=== PATIENT | female | born 1965 | race Caucasian/White ===

== ENCOUNTER 2016-11-09 14:42 | Emergency (ER) | payer MEDICAID ==
[~2016-11-09] VITALS: Ht 177.8 cm; Wt 68.0 kg
[~2016-11-09 14:42] MED LIST: AVALIDE 150-121 EACH PO
[2016-11-09 15:00] VITALS: BP 119/71
[2016-11-09] MEDS ORDERED: DiphenhydrAMINE 50mg/ml Inj IM ONE (15:15)
[2016-11-09] MEDS ORDERED: Solu-MEDROL 125mg Inj IM ONE (15:15)
[2016-11-09] MEDS ORDERED: DIPHENHYDRAMINE25 M1 ORAL (15:45)
[2016-11-09] MEDS ORDERED: PREDNISONE20 MG ORAL (15:45)
[2016-11-09 15:50] VITALS: BP 119/71
--- NOTE | 2016-11-09 17:08 | Emergency Room Report ---
History of Present Illness General Chief Complaint: Allergic Reaction Source: Patient, Medical Record Present Illness HPI 51-year-old female presents to ED for evaluation. Patient states she is having allergic reaction. States that her last night she ate food that may have had walnuts. Patient documents allergy to walnuts. Has had recent allergic reactions which were treated with a shot of steroids and Benadryl. Patient notes that she rash all over body. Denies any throat swelling or tongue swelling. Denies any shortness of breath. Denies any other known food or drug allergies. No other aggravating or relieving factors. Denies any other associated symptoms Allergies: Coded Allergies: No Known Allergies (Unverified , 05/20/12) Patient History Past Medical History: HTN Past Surgical History: none Pertinent Family History: none Social History: Denies: alcohol use, drug use, smoking Last Menstrual Period: 09/01/16 Now: No : 6 Para: 2 Immunizations: UTD Reviewed Nursing Documentation: PMH: Agreed, PSxH: Agreed Nursing Documentation-PMH Past Medical History: No History, Except For Hx Hypertension: Yes Review of Systems All Other Systems: negative except mentioned in HPI Physical Exam Vital Signs Date Time Temp Pulse Resp B/P Pulse Ox O2 Delivery O2 Flow Rate FiO2 11/09/16 14:45 98.1 81 17 119/78 96 Room Air Sp02 EP Interpretation: reviewed, normal General Appearance: no apparent distress, alert, GCS 15, non-toxic Head: normocephalic, atraumatic Eyes: bilateral eye PERRL, bilateral eye normal inspection ENT: hearing grossly normal, normal pharynx, no angioedema, normal voice Neck: full range of motion, supple/symm/no masses Respiratory: chest non-tender, lungs clear, normal breath sounds, speaking full sentences Cardiovascular #1: regular rate, rhythm, no edema Cardiovascular #2: 2+ carotid (R), 2+ carotid (L), 2+ radial (R), 2+ radial (L) , 2+ dorsalis pedis (R), 2+ dorsalis pedis (L) Gastrointestinal: normal bowel sounds, non tender, soft, non-distended, no guarding, no rebound Rectal: deferred Genitourinary: normal inspection, no CVA tenderness Musculoskeletal: back normal, gait/station normal, normal range of motion, non- tender Neurologic: alert, oriented x3, responsive, motor strength/tone normal, sensory intact, speech normal Psychiatric: judgement/insight normal, memory normal, mood/affect normal, no suicidal/homicidal ideation Reflexes: 3+ bicep (R), 3+ bicep (L), 3+ tricep (R), 3+ tricep (L), 3+ knee (R) , 3+ knee (L) Skin: normal color, no rash, warm/dry, well hydrated, rash - diffuse urticaria Lymphatic: no adenopathy Medical Decision Making Diagnostic Impression: Primary Impression: Allergic reaction Qualified Codes: T78.40XA - Allergy, unspecified, initial encounter ER Course Hospital Course 51-year-old female presents ED complaining of diffuse rash. Allergy to walnuts. No tongue swelling or shortness of breath Differential diagnoses include: allergic reaction, angioedema Clinical course Patient placed on stretcher. chemical laboratory tester. After initial history and physical, I offered patient option for IV access with IV medications. Patient refused stating that she would prefer a shot of Solu-Medrol and Benadryl as she received at [facility] previously patient appears comfortable with no signs of airway compromise, this is an appropriate treatment. Patient given Benadryl and Solu-Medrol IM. On reassessment patient states she feels better and will be subsequently discharged i. I feel this is a highly complex case requiring extensive working including EKG/Rhythm strip, Xray/CT/US, Blood/urine lab work, repeat exams while in ED, and administration of strong opiates/narcotics for pain control, admission to hospital or close patient follow up. Diagnosis - allergic reaction Stable and discharged to home with prescriptions for prednisone, Benadryl. Followup with PMD. Return to ED if symptoms recur or worsen Last Vital Signs Date Time Temp Pulse Resp B/P Pulse Ox O2 Delivery O2 Flow Rate FiO2 11/09/16 15:50 98.2 79 16 119/71 99 Room Air Status: improved Disposition: HOME, SELF-CARE Condition: Stable Scripts Diphenhydramine Hcl* (DIPHENHYDRAMINE HCL*) 25 Mg Capsule 25 MG ORAL Q6H Y for Itching for 5 Days, #30 CAP 0 Refills Prov: GAYE VALENTE M.D. 11/09/16 Prednisone* (PREDNISONE*) 20 Mg Tablet 40 MG ORAL DAILY, #10 TAB Prov: GAYE VALENTE M.D. 11/09/16 Referrals: [facility],REFERRING (PCP) Patient Instructions: Allergies GAYE VALENTE M.D. Nov 09, 2016 17:08
== END 2016-11-09 15:50 | disposition home or self-care (01) ==
LOC: EMR 15:30
DX: T78.40XA Allergy, unspecified, initial encounter (principal); X58.XXXA Exposure to other specified factors, initial encounter; R21 Rash and other nonspecific skin eruption; I10 Essential (primary) hypertension
CPT/HCPCS: 96372; 99284; J1200; J2930